=== PATIENT | male | born 1985 | race Two or more races ===

== ENCOUNTER 2022-12-15 18:17 | Emergency (ER) | payer OTHER ==
[~2022-12-15] VITALS: Ht 170.2 cm; Wt 79.4 kg
[2022-12-15 18:51] VITALS: BP 133/89
--- NOTE | 2022-12-15 19:00 | NUR ---
R foot pain/swelling s/p dropping heavy object x 1 week. also c/o sore throat, "yellow phlegm" x 1 month
[2022-12-15] MEDS ORDERED: IBUPROFEN 400 MG TABLET ONE (19:56)
[2022-12-15] MEDS ORDERED: IBUPROFEN 400 MG TABLET PO ONE (20:00)
--- NOTE | 2022-12-15 20:07 | NUR ---
[employer] AT PT'S BEDSIDE
[2022-12-15] MEDS ORDERED: HYDR-3976 PO (20:56)
[2022-12-15] MEDS ORDERED: LORA10TA7 PO (20:56)
[2022-12-15] MEDS ORDERED: DIPH25CA83 PO (20:56)
[2022-12-15] MEDS ORDERED: IBUP-1955 PO (20:56)
== END 2022-12-15 21:50 | disposition home or self-care (01) ==
LOC: ER 18:31
DX: S90.31XA Contusion of right foot, initial encounter (principal); R09.81 Nasal congestion; R09.82 Postnasal drip; Z79.899 Other long term (current) drug therapy; W20.8XXA Other cause of strike by thrown, projected or falling object, initial encounter; Y93.89 Activity, other specified; Y92.89 Other specified places as the place of occurrence of the external cause; Y99.8 Other external cause status
CPT/HCPCS: 73630-TC